=== PATIENT | male | born 1980 | race Two or more races ===

== ENCOUNTER 2019-09-15 03:08 | Emergency (ER) | payer OTHER ==
[~2019-09-15] VITALS: Ht 170.2 cm; Wt 81.6 kg
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
--- NOTE | 2019-09-15 03:20 | NUR ---
URINE SPECIMEN COLLECTED AND SENT TO LAB
[2019-09-15] MEDS ORDERED: HYDROCODONE/APAP 10/325MG 1 EA TABLET ONE (03:25)
[2019-09-15] MEDS ORDERED: ONDANSETRON 4 MG TAB.RAPDIS ONE (03:25)
--- NOTE | 2019-09-15 03:25 | NUR ---
SEEN AND EXAMINED BY .
[2019-09-15 03:29] LABS: APPEARANCE,URINE Clear (CLEAR); BILIRUBIN,URINE SMALL (NEGATIVE); BLOOD, URINE Negative Ery/uL (NEGATIVE); COLOR,URINE Dark (YELLOW); KETONES,URINE 15 (NEGATIVE); LEUKOCYTE ESTERASE ,URINE Trace (NEGATIVE); NITRITE, URINE Negative (NEGATIVE); PROTEIN,URINE 30 mg/dl (NEGATIVE); UGLUCOSE Negative (NEGATIVE); UROBILINOGEN,URINE 0.2 EU/dL (0.2)
[2019-09-15] MEDS ORDERED: ONDANSETRON 4 MG TAB.RAPDIS SL ONE (03:30)
[2019-09-15] MEDS ORDERED: HYDROCODONE/APAP 10/325MG 1 EA TABLET PO ONE (03:30)
[2019-09-15 03:43] LABS: BACTERIA,URINE Few /HPF (None Seen); MUCUS,URINE Moderate /LPF (None Seen); RBC,URINE 0-2 /HPF (0-2); SQUAMOUS EPITHELIAL CELL,UR Rare /HPF (None Seen); WBC,URINE 81-100 /HPF (0-3)
--- NOTE | 2019-09-15 04:23 | NUR ---
US TECH AT BEDSIDE.
[2019-09-15] MEDS ORDERED: DOXYCYCLINE HYCLATE (100 MG) 100 MG TABLET ONE (04:48)
[2019-09-15] MEDS ORDERED: CEFTRIAXONE 1 G VIAL ONE (04:48)
[2019-09-15] MEDS ORDERED: LIDOCAINE /MPF 1% VIAL 5 ML VIAL ONE (04:49)
[2019-09-15 04:58] VITALS: BP 117/64
--- NOTE | 2019-09-15 04:59 | NUR ---
Patient discharged to home in stable condition. Written and verbal after care instructions given. Patient verbalizes understanding of instruction.
[2019-09-15] MEDS ORDERED: CEFTRIAXONE 1 G VIAL IM ONE (05:00)
[2019-09-15] MEDS ORDERED: DOXYCYCLINE HYCLATE (100 MG) 100 MG TABLET PO ONE (05:00)
== END 2019-09-15 05:00 | disposition home or self-care (01) ==
LOC: ER 03:12
DX: N45.3 Epididymo-orchitis (principal)
CPT/HCPCS: 76870; 81001; 87086; 96372; 99284; J0696; J3490; Q0162; 81000-TC